=== PATIENT | female | born 1985 | race Two or more races ===

== ENCOUNTER 2021-11-12 16:25 | Emergency (ER) | payer MEDICAID ==
[~2021-11-12] VITALS: Ht 157.5 cm; Wt 64.4 kg
[~2021-11-12 16:25] MED LIST: BIRTH CONTROL PILL
--- NOTE | 2021-11-12 17:12 | NUR ---
BIBS FOR C/O NECK/CHEST AND BACK OF HEAD PRESSURE OR TIGHTNESS SINCE SHE GOT HER BOOSTER. RATES NECK, CHEST AND HEAD PAIN 8/10. IN ROOM AIR AND DENIES SOB. RESPIRATION REGULAR AND UNLABORED. WILL CONTINUE TO MONITOR THE PATIENT.
[2021-11-12 17:37] LABS: BASOPHILS % (AUTO) 0.7 % (0.0-2.0); HEMATOCRIT 44 % (33-45); LYMPHOCYTES # (AUTO) 2.4 K/uL (0.8-4.8); MEAN CORPUSCULAR HGB CONC 34 g/dl (31.0-36.0); MEAN CORPUSCULAR VOLUME 92 fL (82-100); MONOCYTES # (AUTO) 0.6 K/uL (0.1-1.30); MONOCYTES % (AUTO) 8.3 % (2.0-12.0); NEUTROPHILS # (AUTO) 3.4 K/uL (1.8-8.9); PLATELET COUNT (AUTO) 295 K/uL (150-450); RED BLOOD CELL COUNT(AUTO) 4.79 MIL/uL (4.0-5.2); WHITE BLOOD COUNT (AUTO) 6.8 K/uL (4.3-11.0)
[2021-11-12 17:50] LABS: CALCIUM, SERUM 9.5 mg/dL (8.5-10.1); CARBON DIOXIDE 32 mmol/L (21-32); CHLORIDE 103 mmol/L (98-107); CREATININE 0.8 mg/dL (0.6-1.3); GLUCOSE 75 mg/dL (74-106); POTASSIUM 4.4 mmol/L (3.5-5.1); SODIUM SERUM 138 mmol/L (136-145); UREA NITROGEN, BLOOD 21 mg/dL (7-18)
[2021-11-12 18:02] LABS: ALANINE AMINOTRANSFERASE 35 U/L (12-78); ALBUMIN 3.3 g/dL (3.4-5.0); ALKALINE PHOSPHATASE 81 U/L (46-116); ASPARTATE AMINOTRANSFERASE 18 U/L (15-37); BILIRUBIN,DIRECT 0.1 mg/dL (0.0-0.2); BILIRUBIN,TOTAL 0.3 mg/dL (0.2-1.0); TOTAL PROTEIN, SERUM 7.8 g/dL (6.4-8.2)
--- NOTE | 2021-11-12 18:23 | NUR ---
COVID SWAB DONE AND SENT TO THE LAB
[2021-11-12] MEDS ORDERED: TRAM50TA2 PO (18:45)
[2021-11-12] MEDS ORDERED: AZIT250T13 PO (18:45)
--- NOTE | 2021-11-12 18:53 | NUR ---
Patient discharged to home in stable condition. Written and verbal after care instructions given. Patient verbalizes understanding of instruction.
[2021-11-12 18:54] VITALS: BP 127/75
== END 2021-11-12 18:54 | disposition home or self-care (01) ==
LOC: ER 16:31
DX: R07.89 Other chest pain (principal); I88.9 Nonspecific lymphadenitis, unspecified; R00.1 Bradycardia, unspecified; Z20.822 Contact with and (suspected) exposure to COVID-19
CPT/HCPCS: 36415; 71045; 80048; 80076; 84484; 84703; 85025; 85378; 87426; 93005; 99285; C9803

== ENCOUNTER 2025-09-06 15:01 | Emergency (ER) | payer BC, MEDICAID ==
[~2025-09-06] VITALS: Ht 157.5 cm; Wt 83.9 kg
[~2025-09-06 15:01] MED LIST changes: +AZIT250T13 PO; +TRAM50TA2 PO
[2025-09-06 15:58] LABS: PLATELET COUNT (AUTO) 301 K/uL (150-450); RED BLOOD CELL COUNT(AUTO) 4.97 MIL/uL (4.0-5.2); RED CELL DISTRIBUTION WIDTH 13.3 % (11.5-15.0); WHITE BLOOD COUNT (AUTO) 7.4 K/uL (4.3-11.0)
[2025-09-06 16:12] LABS: CALCIUM, SERUM 9.8 mg/dL (8.5-10.1); CREATININE 0.6 mg/dL (0.6-1.3); INR 0.93 (0.91-1.10); SODIUM SERUM 139.0 mmol/L (136-145); UREA NITROGEN, BLOOD 16.0 mg/dL (7-18)
[2025-09-06 17:36] VITALS: BP 118/87; TEMP 98.1; O2SAT 98
== END 2025-09-06 17:37 | disposition home or self-care (01) ==
LOC: ER 15:10
DX: R22.1 Localized swelling, mass and lump, neck (principal); R20.2 Paresthesia of skin; R42 Dizziness and giddiness; Z86.2 Personal history of diseases of the blood and blood-forming organs and certain disorders involving the immune mechanism; Z79.3 Long term (current) use of hormonal contraceptives
CPT/HCPCS: 36415; 70450-TC; 70490-TC; 80048-TC; 83735-TC; 84443-TC; 85025-TC; 85730-TC